=== PATIENT | female | born 1965 ===

== ENCOUNTER 2017-10-03 08:35 | Emergency (ER) | payer SELFPAY ==
[2017-10-03 08:35] VITALS: BMI 34.5
[2017-10-03 08:40] VITALS: TEMP 97.8; O2SAT 98
[2017-10-03] MEDS ORDERED: Sodium Chloride 0.9% 1,000 ML IV STA (09:01)
[2017-10-03 09:22] LABS: BASO % 0.4 % (0.0-2.0); EOS # 0.5 K/uL (0.0-0.7); EOS % 6.1 % (0.0-4.0); HEMATOCRIT 39.4 % (34.0-47.0); LYMPH % 24.5 % (20.0-40.0); MEAN CELL VOLUME 79.5 fl (81.0-99.0); MEAN CORPUSCULAR HEMOGLOBIN 26.7 pg (27.0-31.0); MEAN CORPUSCULAR HGB CONC 33.5 g/dL (33.0-37.0); MEAN PLATELET VOLUME 7.5 fl (7.2-11.7); MONO # 0.5 K/uL (0.0-0.8); MONO % 5.5 % (0.0-10.0); NEUT # 5.2 K/uL (1.8-7.0); NEUT % 63.5 % (50.0-75.0); RBC URINE 6 /hpf (0-3); RED CELL DISTRIBUTION WIDTH 13.8 % (11.5-14.5); URINE BILIRUBIN NEGATIVE (NEGATIVE); URINE BLOOD MODERATE (NEGATIVE); URINE COLOR YELLOW (YELLOW); URINE GLUCOSE (UA) NEG (Normal); URINE KETONE NEGATIVE (NEGATIVE); URINE LEUKOCYTE ESTERASE NEG Leu/uL (Negative); URINE PROTEIN NEGATIVE (NEGATIVE); URINE UROBILINOGEN 0.2-1.0 mg/dL (0.2-1.0); WBC URINE 2 /hpf (0-5); WHITE BLOOD COUNT 8.2 K/uL (4.8-10.8)
[2017-10-03 09:45] LABS: ALB/GLOB RATIO 1.2 (1.0-2.1); ALKALINE PHOSPHATASE 120 U/L (38-126); ALT/SGPT 39 U/L (9-52); AST/SGOT 25 U/L (14-36); BILIRUBIN,TOTAL 0.3 mg/dl (0.2-1.3); BLOOD UREA NITROGEN 15 mg/dl (7-17); CALCIUM 9.2 mg/dL (8.4-10.2); CARBON DIOXIDE 26 mmol/L (22-30); CHLORIDE 106 mmol/L (98-107); GFR AFRICAN-AMERICAN > 60; GLUCOSE,RANDOM 101 mg/dL (65-105); SODIUM 144 mmol/l (132-148)
--- NOTE | 2017-10-03 14:12 | CT ---
PROCEDURE: CT HEAD WITHOUT CONTRAST. HISTORY: Headache and dizziness COMPARISON: None available. TECHNIQUE: Axial computed tomography images were obtained through the head/brain without intravenous contrast. Radiation dose: Total exam DLP = 741.35 mGy-cm. This CT exam was performed using one or more of the following dose reduction techniques: Automated exposure control, adjustment of the mA and/or kV according to patient size, and/or use of iterative reconstruction technique. FINDINGS: HEMORRHAGE: No intracranial hemorrhage. BRAIN: Brody-white matter differentiation is preserved. There is no mass, mass effect or abnormal extra-axial fluid collection. VENTRICLES: The ventricles are normal in size, shape and configuration. CALVARIUM: The skull base and calvarium are normal. PARANASAL SINUSES: Predominantly clear. MASTOID AIR CELLS: Predominantly clear. OTHER FINDINGS: None. IMPRESSION: No acute intracranial abnormality.
--- NOTE | 2017-10-03 14:44 | ED PDOC ---
HPI: Neurologic - General Time Seen by Provider: 10/03/17 08:45 Chief Complaint (Nursing): Dizziness/Lightheaded Chief Complaint (Provider): Dizziness and Headache Source: patient Exam Limitations: no limitations - History of Present Illness Timing/Duration: other (2-3 days) Associated Symptoms: denies: vision changes Allergies/Adverse Reactions: Allergies No Known Allergies Allergy (Verified 10/03/17 08:53) Home Medications: Ambulatory Orders Levothyroxine Sodium [Synthroid] 88 mcg PO DAILY 01/19/15 metFORMIN [glucOPHAGE] 500 mg PO BID 05/16/16 Meclizine [Antivert] 25 mg PO Q8 PRN #15 tab 10/03/17 Additional Complaint(s): Miriam Gonzalez, a 52 year old female, with a past medical history of hypercholesterolemia presents to the ED complaining of intermittent dizziness and headache x2-3 days. She denies change in vision, change in coordination, change in strength, tinnitus, head injury or falls. PMD: Peter Beatty Past Medical History Reviewed: Historical Data, Nursing Documentation, Vital Signs Vital Signs: Last Vital Signs Temp 97.8 F 10/03/17 08:39 Pulse 67 10/03/17 09:27 Resp 20 10/03/17 09:27 BP 128/68 10/03/17 09:27 Pulse Ox 98 10/03/17 09:27 - Medical History PMH: Gall Bladder Disease (lap mary), Hypercholesterolemia, Hypothyroidism Denies: Chronic Kidney Disease - Surgical History Surgical History: Cholecystectomy, (x1) - Family History Family History: States: Unknown Family Hx - Social History Current smoker - smoking cessation education provided: No Ex-Smoker (has not smoked in the last 12 months): No Alcohol: None Drugs: Denies - Home Medications Home Medications: Ambulatory Orders Medication Instructions Recorded Levothyroxine Sodium [Synthroid] 88 mcg PO DAILY 01/19/15 metFORMIN [glucOPHAGE] 500 mg PO BID 05/16/16 Meclizine [Antivert] 25 mg PO Q8 PRN #15 tab 10/03/17 - Allergies Allergies/Adverse Reactions: Allergies Allergy/AdvReac Type Severity Reaction Status Date / Time No Known Allergies Allergy Verified 10/03/17 08:53 Review of Systems ROS Statement: Except As Marked, All Systems Reviewed And Found Negative Eyes: Negative for: Vision Change Neurological: Positive for: Headache, Dizziness Physical Exam - Reviewed Nursing Documentation Reviewed: Yes Vital Signs Reviewed: Yes - Physical Exam Appears: Positive for: Non-toxic, No Acute Distress Head Exam: Positive for: ATRAUMATIC, NORMAL INSPECTION, NORMOCEPHALIC Skin: Positive for: Normal Color, Warm, Dry. Negative for: Rash Eye Exam: Positive for: Normal appearance, EOMI, PERRL. Negative for: Nystagmus ENT: Positive for: Normal ENT Inspection. Negative for: Nasal Congestion, Tonsillar Exudate, Tonsillar Swelling Neck: Positive for: Normal, Painless ROM, Supple Cardiovascular/Chest: Positive for: Regular Rate, Rhythm, Chest Non Tender. Negative for: Tachycardia Respiratory: Positive for: Normal Breath Sounds. Negative for: Rales, Rhonchi, Wheezing, Respiratory Distress Gastrointestinal/Abdominal: Positive for: Normal Exam, Bowel Sounds, Soft. Negative for: Tenderness, Guarding, Rebound Back: Positive for: Normal Inspection. Negative for: L CVA Tenderness, R CVA Tenderness Extremity: Positive for: Normal ROM. Negative for: Tenderness, Deformity, Swelling Lymphatic: Positive for: Normal Exam. 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 Negative for: Motor/Sensory Deficits, Aphasia, Facial Droop - Laboratory Results Result Diagrams: 10/03/17 09:11 10/03/17 09:11 - ECG ECG Rhythm: Positive for: Sinus Rhythm (67 bpm), Right Bundle Branch Block ( incomple right bundle branch block) O2 Sat by Pulse Oximetry: 98 (RA) Pulse Ox Interpretation: Normal Medical Decision Making Medical Decision Makin Initial Impression 52 y/o female presenting with dizziness and headache Initial Plan: * EKG * CT Head w/o Contrast * CMP * Troponin * CBC * NS 1000mls IV 1000mls/hr * Zofran 4mg * Urinalysis * Reevaluation EKG performed: * Incomplete right bundle branch block * Normal sinus rhythm 67 bpm 1453 Upon provider reevaluation the patient is medically stable and will be discharged home with a trial of meclizine and instructions to follow up with the clinic. Diagnosis: Dizziness Follow Up: Clinic Rx: Meclizine Scribe Attestation: Documented by Ale Cartagena, acting as a scribe for Toni Mcclellan DO. Provider Scribe Attestation: All medical record entries made by the Scribe were at my direction and personally dictated by me. I have reviewed the chart and agree that the record accurately reflects my personal performance of the history, physical exam, medical decision making, and the department course for this patient. I have also personally directed, reviewed, and agree with the discharge instructions and disposition. Disposition - Clinical Impression Clinical Impression: Dizziness - Patient ED Disposition Is Patient to be Admitted: No Counseled Patient/Family Regarding: Studies Performed, Diagnosis, Need For Followup - Disposition Referrals: [facility] [Outside] Oscar Johnson MD [Medical Doctor] - Disposition: Routine/Home Disposition Time: 14:53 Condition: STABLE Additional Instructions: Return to ER for any worse or new symptoms. Prescriptions: Meclizine [Antivert] 25 mg PO Q8 PRN #15 tab PRN Reason: Dizziness Instructions: Dizziness (ED) Forms: [facility] (French) Print Language: LITHUANIAN - POA Present On Arrival: None
[2017-10-03 15:02] VITALS: BP 124/57; PULSE 64; RESP 18
--- NOTE | 2017-10-03 17:40 | CARD ---
APPROVED REPORT EKG Measurement Heart [id number] <Conclusion> Normal sinus rhythm Incomplete right bundle branch block Borderline ECG
== END 2017-10-03 14:50 | disposition home or self-care (01) ==
LOC: H.ER 08:35
DX: R42 Dizziness and giddiness (principal); E03.9 Hypothyroidism, unspecified; E78.00 Pure hypercholesterolemia, unspecified; Z79.84 Long term (current) use of oral hypoglycemic drugs; Z87.891 Personal history of nicotine dependence
CPT/HCPCS: 70450; 80053; 81003; 84484; 85025; 93005; 96360; 99285; J2405; J7040